=== PATIENT | male | born 1965 | race Caucasian/White ===

== ENCOUNTER 2021-12-16 06:49 | Outpatient (CLI) | payer BC, SELFPAY ==
--- OUTSIDE RECORDS SUMMARY | 2021-12-16 06:53 | XMS_ITS | Clinical Summary ---
:1965 Author Organization [facility] [place] [address] Care Team Providers Name Role Phone None Primary Care Provider Unavailable Allergies No known active allergies Medications Medication Sig Dispensed Refills Start Date End Date Status oxyCODONE (ROXICODONE) Take 1 tablet by 6 tablet 0 08/27/2019 Active 5 mg immediate release mouth every 6 tabletIndications: hours if needed Closed displaced for Pain fracture of head of right radius, initial encounter Active Problems Not on file Social History Tobacco Use Types Packs/Day Years Used Date Never Smoker Smokeless Tobacco: Never Used Sex Assigned at Date Recorded Not on file Obstetrics History Last Filed Vital Signs Vital Sign Reading Time Taken Comments Blood Pressure 175/89 08/27/2019 3:39 PM CDT Pulse 96 08/27/2019 3:39 PM CDT Temperature 36.8 ??C (98.2 ??F) 08/27/2019 3:39 PM CDT Respiratory Rate 18 08/27/2019 3:39 PM CDT Oxygen Saturation 98% 08/27/2019 3:39 PM CDT Inhaled Oxygen Concentration - - Weight 176 kg (388 lb) 08/27/2019 3:38 PM CDT Height 190.5 cm (6' 3) 08/27/2019 3:38 PM CDT Body Mass Index 48.5 08/27/2019 3:38 PM CDT Plan of Treatment Health Maintenance Due Date Last Done Comments COVID-19 vaccine series (#1) 1965 Tdap 05/17/1978 Depression screening for age 12+ 1979 BMI (ht and wt on same day) for age 18+ 05/17/1985 Hepatitis C screening for age 18-79 05/17/1985 Tetanus booster 1987 Colonoscopy through age 75 05/17/2012 Lipids for age 45-75 05/17/2012 Zoster (shingles) series for age 50+ (1 of 2) 05/17/2017 Influenza for age 50-64 11/12/2021 Results Not on filefrom Last 3 Months Insurance Payer Benefit Plan / Subscriber ID Effective Dates Phone Addre ss Type Group [id number] 2016-Present [address] [address] [place] [address] Care Teams Customer Service Dispatcher Relationship Specialty Start Date End Date None PCP - General 08/27/19 .
--- NOTE | 2021-12-16 07:15 | MR_ITS ---
[address] [address] Phone:?[phone] Fax:?[phone] Referring Physician Information: Alvino Riggs [address] [facility] [address] Phone:?[phone] Fax:?[phone] Patient:Dom Hoffman D.O.B:?1965 Sex:?Male Phone:?[phone] [facility] MRN:?[id number] Exam Date:?12/16/2021 ? EXAM: MRI of the LEFT KNEE, without contrast CLINICAL INFORMATION: Male, 56 years old, with left knee pain. INDICATION: Evaluate for meniscal tear. PRIOR SURGERY: None reported. PLAIN FILMS: None available. COMPARISONS: No prior MRIs available. TECHNICAL INFORMATION: Using a 1.5T MR scanner and a localizing surface coil: sagittals: PD, PDFS coronals: PD, T2FS axials: PD, PDFS SEDATION: None CONTRAST: None FINDINGS: Knee joint: Effusion: Large left knee effusion, with synovitis. Popliteal cyst: Medium sized, superiorly leaking Guillen cyst. Loose bodies: None. Subcutaneous and extra-articular soft tissues: Unremarkable. Ligaments: ACL: Intact ACL anteromedial and posterolateral bundles, without sprain or tear. PCL: Intact PCL, without acute or chronic injury. MCL: Mild thickening involving the proximal one third of the superficial MCL, without MCL tear. LCL: Intact LCL, without injury. Posterolateral corner: No posterolateral corner soft tissue injury. Popliteus, biceps femoris, iliotibial band, popliteofibular ligament and lateral gastrocnemius are intact. Posteromedial corner: No posteromedial corner soft tissue injury. Semimembranosus, pes anserine tendons and posterior oblique ligament are without injury, tendinopathy or bursitis. Extensor mechanism: Patellar tendon: Mild proximal patellar tendinopathy, without tear. Quadriceps tendon: Intact, without tendinopathy. Retinacula: Medial and lateral retinacula are intact. Fat pads: Moderate generalized soft tissue edema throughout the knee fat pads, which likely reflects synovitis. Medial compartment: Medial meniscus: Full thickness radial tearing of the medial meniscal posterior horn/root over a length of 1.4 cm (sagittal PD series 5 images 12-15 and coronal STIR series 8 images 19 & 20). Meniscal extrusion measures 7 mm. No parameniscal cyst. 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 Lateral compartment: Lateral meniscus: No articular surface, meniscosynovial junction or root tear. No displacement, extrusion or parameniscal cyst. Lateral femoral condyle & tibial plateau: Minimal signal heterogeneity, surface irregularity, and thinning of the articular cartilage without full-thickness chondral loss or reactive osseous changes. Patellofemoral joint: Patella: Broad-based grade II chondromalacia of the medial patellar facet, with minimal marginal osteophytosis. Trochlea: Broad-based grade II chondromalacia medial facet and central sulcus of the trochlea, with minimal marginal osteophytosis. Proximal tibiofibular joint: Unremarkable, without evidence of ligament sprain injury, joint effusion or adjacent marrow edema. Bones: Approximately 6 x 6 mm area of poorly defined subchondral fracturing involving the central surface of the medial femoral condyle (sagittal PD series 5 image 10 and coronal PD series 7 image 19). No discrete medial tibial plateau fracture. IMPRESSION: 1. Full-thickness radial tearing of the posterior horn/root of the medial meniscus measuring 1.4 cm, with 7 mm of meniscal extrusion. This tear is expected to diminish the intrinsic meniscal load sharing function. 2. 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 3. Approximately 6 x 6 mm area of poorly defined subchondral fracturing of the central surface of the medial femoral condyle, which likely reflects altered medial compartment stress loading given the aforementioned meniscal tear. 4. Minimal osteoarthritis of the patellofemoral compartment. 5. Large knee joint effusion with synovitis and a medium-sized, superiorly leaking Guillen cyst. 6. Mild proximal patellar tendinopathy, without tear. 7. Chronic sequela low-grade proximal MCL sprain, without tear. No ACL, PCL, or LCL sprain/tear. 8. No lateral meniscal tear or significant osteochondral abnormality of the lateral compartment. BC Electronically signed on 12/16/2021 12:55:00 PM by Tomas Marrufo M.D.
== END 2021-12-16 06:50 | disposition home or self-care (01) ==
PROVIDERS: PCP Family Medicine; Visit Provider Physician Assistant
DX: M25.562 Pain in left knee (principal); M23.222 Derangement of posterior horn of medial meniscus due to old tear or injury, left knee; M17.9 Osteoarthritis of knee, unspecified; M25.462 Effusion, left knee; S83.412A Sprain of medial collateral ligament of left knee, initial encounter
CPT/HCPCS: 73721